=== PATIENT | male | born 1995 | race Caucasian/White ===

== ENCOUNTER 2017-02-22 14:05 | Emergency (ER) | payer BC ==
[~2017-02-22] VITALS: Ht 185.4 cm; Wt 110.0 kg
[2017-02-22] MEDS ORDERED: UNKNOWN ANXIETY MED (14:14)
[2017-02-22] MEDS ORDERED: PAROXETINE20 MG PO (14:28)
[2017-02-22 14:37] LABS: ALBUMIN 4.9 g/dL (3.2-5.0); ALKALINE PHOSPHATASE 61 u/l (38-126); ANION GAP 17 (6-22 (CALC)); BILIRUBIN, TOTAL 0.6 mg/dL (0.0-1.4); BUN 17 mg/dL (9-20); BUN/CREATININE RATIO 16 (12-20 (CALC)); CALCIUM 9.5 mg/dL (8.4-10.2); CARBON DIOXIDE 24 mmol/l (22-30); CHLORIDE 103 mmol/l (95-108); CREATININE 1.1 mg/dL (0.7-1.3); GFR > 60 ML/MIN (>=60 (CALC)); GFR FOR AFR.AMER. > 60 ML/MIN (>=60 (CALC)); GLUCOSE 106 mg/dL (75-110); HEMOGLOBIN 16.7 g/dl (14.0-18.0); IMMATURE GRANULOCYTES 0.3 % (0.0-1.0); MAGNESIUM 1.7 mg/dL (1.6-2.3); MEAN CORPUSCULAR HGB 28.9 pG CALC (26.0-32.0); MEAN CORPUSCULAR HGB CONC 34.8 g/L CALC (32.0-36.0); NEUT# 8.82 thou/uL (1.82-7.42); POTASSIUM 3.3 mmol/l (3.5-5.1); RED BLOOD COUNT 5.78 mill/uL (4.70-6.10); SGOT/AST 20 u/l (17-59); SGPT/ALT 31 u/l (21-72); SODIUM 141 mmol/l (137-146); TOTAL PROTEIN 8.1 g/dL (6.3-8.2)
[2017-02-22 16:21] VITALS: BP 136/88
== END 2017-02-22 16:30 | disposition home or self-care (01) | DRG 880 ==
LOC: ED 14:05
PROVIDERS: Emergency Medicine
DX: F41.1 Generalized anxiety disorder (principal)